=== PATIENT | female | born 1965 | race Caucasian/White ===

== ENCOUNTER → 2016-10-28 | Outpatient (CLI) | payer OTHER ==
[~2016-10-28] MED LIST: AMBIEN10 MG PO
== END ==
LOC: COL.RAD 08:06
DX: M25.562 Pain in left knee (principal); M25.762 Osteophyte, left knee; R60.0 Localized edema; S83.242A Other tear of medial meniscus, current injury, left knee, initial encounter; X58.XXXA Exposure to other specified factors, initial encounter

== ENCOUNTER 2017-05-23 05:35 | Day surgery (SDC) | payer OTHER ==
[~2017-05-23] VITALS: Ht 157.5 cm; Wt 49.5 kg
[2017-05-23] MEDS ORDERED: PROAIR HFA0.09 MG/AC IH (05:51)
[2017-05-23 05:54] VITALS: BP 100/68; PULSE 54; TEMP 97.7
[2017-05-23 10:34] VITALS: BP 114/70; PULSE 80; TEMP 97.8
[2017-05-23 10:45] VITALS: BP 108/69; PULSE 71
[2017-05-23 11:00] VITALS: BP 98/69; PULSE 79
[2017-05-23 11:15] VITALS: BP 104/71; PULSE 71
== END 2017-05-23 12:50 | disposition home or self-care (01) ==
LOC: SDCO 05:35
DX: S83.512A Sprain of anterior cruciate ligament of left knee, initial encounter (principal); X58.XXXA Exposure to other specified factors, initial encounter; S83.222A Peripheral tear of medial meniscus, current injury, left knee, initial encounter; J45.909 Unspecified asthma, uncomplicated; M22.42 Chondromalacia patellae, left knee
CPT/HCPCS: C1713; J0171; J1100; J1885; J2250; J2405; J2704; J2795; J3010; J7120

== ENCOUNTER → 2022-12-06 | Outpatient (CLI) | payer OTHER ==
[~2022-12-06] MED LIST changes: +PROAIR HFA0.09 MG/AC IH
== END ==
LOC: COL.PUL 08:33
DX: R05.3 Chronic cough (principal)